=== PATIENT | male | born 1990 ===

== ENCOUNTER 2020-05-04 17:39 | Emergency (ER) | payer OTHER ==
[2020-05-04 18:30] VITALS: BP 120/56
[2020-05-04] MEDS ORDERED: ONDANSETRON 4 MG ODT TAB PO ONE (18:52)
--- NOTE | 2020-05-04 18:58 | Emergency Department Report ---
ED Abdominal Pain HPI - General Chief Complaint: Abdominal Pain Stated Complaint: ABDOMINAL PAIN Time Seen by Provider: 05/04/20 18:52 Source: patient Mode of arrival: Ambulatory Limitations: No Limitations - History of Present Illness Initial Comments: Patient is a 30-year-old male presents emergency room with complaints of nausea and vomiting that began last night. He states he has had multiple episodes of vomiting. He states that he also has some right upper quadrant abdominal pain that began after the vomiting. He states he attributed it to the frequent vomiting. He states that last night he ate chicken nuggets from [employer]. He denies anyone else getting sick. He denies any sick contacts, recent travel, recent antibiotics. Patient denies any diarrhea, fever, urinary symptoms, pain or swelling in the testicles, hematochezia, hematemesis, melena. He denies any past surgical history. No past medical history. No allergies to medications. He endorses occasional tobacco use. He states he rarely drinks alcohol. - Related Data Previous Rx's Medication Instructions Recorded Last Taken Type Famotidine [Pepcid] 40 mg PO QHS #14 tablet 05/04/20 Unknown Rx Ondansetron [Zofran Odt] 4 mg PO Q8HR PRN #10 tab.rapdis 05/04/20 Unknown Rx traMADoL [Ultram 50 MG tab] 50 mg PO Q6HR PRN #10 tablet 05/04/20 Unknown Rx Allergies Allergy/AdvReac Type Severity Reaction Status Date / Time No Known Allergies Allergy Unverified 05/04/20 18:25 ED Review of Systems ROS: Stated complaint: ABDOMINAL PAIN Other details as noted in HPI Comment: All other systems reviewed and negative ED Past Medical Hx - Past Medical History Previous Medical History?: No - Surgical History Past Surgical History?: No - Social History Smoking Status: Current Every Day Smoker Substance Use Type: None - Medications Home Medications: Home Medications Medication Instructions Recorded Confirmed Last Taken Type Famotidine [Pepcid] 40 mg PO QHS #14 tablet 05/04/20 Unknown Rx Ondansetron [Zofran Odt] 4 mg PO Q8HR PRN #10 tab.rapdis 05/04/20 Unknown Rx traMADoL [Ultram 50 MG tab] 50 mg PO Q6HR PRN #10 tablet 05/04/20 Unknown Rx ED Physical Exam - General Limitations: No Limitations General appearance: alert, in no apparent distress - Head Head exam: Present: atraumatic, normocephalic - Eye Eye exam: Present: normal appearance - ENT ENT exam: Present: mucous membranes moist - Respiratory Respiratory exam: Present: normal lung sounds bilaterally. Absent: respiratory distress, wheezes, rales, rhonchi, stridor, chest wall tenderness, accessory muscle use, decreased breath sounds, prolonged expiratory - Cardiovascular Cardiovascular Exam: Present: regular rate, normal rhythm, normal heart sounds. Absent: systolic murmur, diastolic murmur, rubs, gallop - GI/Abdominal GI/Abdominal exam: Present: soft, tenderness (mild RUQ, negative murphys sign, no mcburneys point ttp, negative vidales turners and cullens sign), normal bowel sounds. Absent: distended, guarding, rebound, rigid - Neurological Exam Neurological exam: Present: alert, oriented X3 - Psychiatric Psychiatric exam: Present: normal affect, normal mood - Skin Skin exam: Present: warm, dry, intact ED Course Vital Signs 05/04/20 18:26 Temperature 97.3 F L Pulse Rate 58 L Respiratory 18 Rate Blood Pressure 120/56 O2 Sat by Pulse 97 Oximetry ED Medical Decision Making - Lab Data Result diagrams: 05/04/20 18:59 05/04/20 18:59 Lab Results 05/04/20 05/04/20 Range/Units 18:59 18:59 WBC 8.2 (4.5-11.0) K/mm3 RBC 5.03 (3.65-5.03) M/mm3 Hgb 15.5 H (11.8-15.2) gm/dl Hct 43.9 (35.5-45.6) % MCV 87 (84-94) fl MCH 31 (28-32) pg MCHC 35 H (32-34) % RDW 12.8 L (13.2-15.2) % Plt Count 320 (140-440) K/mm3 Lymph % (Auto) 31.2 (13.4-35.0) % [place] % (Auto) 7.7 H (0.0-7.3) % Eos % (Auto) 2.6 (0.0-4.3) % Baso % (Auto) 1.0 (0.0-1.8) % Lymph # (Auto) 2.7 (1.2-5.4) K/mm3 [place] # (Auto) 0.7 (0.0-0.8) K/mm3 Eos # (Auto) 0.2 (0.0-0.4) K/mm3 Baso # (Auto) 0.1 (0.0-0.1) K/mm3 Seg Neutrophils % 57.5 (40.0-70.0) % Seg Neutrophils # 5.0 (1.8-7.7) K/mm3 Sodium 138 (137-145) mmol/L Potassium 3.4 L (3.6-5.0) mmol/L Chloride 99.4 (98-107) mmol/L Carbon Dioxide 30 (22-30) mmol/L Anion Gap 12 mmol/L BUN 5 L (9-20) mg/dL Creatinine 0.8 (0.8-1.3) mg/dL Estimated GFR > 60 ml/min BUN/Creatinine Ratio 6 % Glucose 93 (75-100) mg/dL Calcium 9.8 (8.4-10.2) mg/dL Total Bilirubin 0.70 (0.1-1.2) mg/dL AST 18 (5-40) units/L ALT 12 (7-56) units/L Alkaline Phosphatase 68 (35-129) units/L Total Protein 7.9 (6.3-8.2) g/dL Albumin 5.0 (3.9-5) g/dL Albumin/Globulin Ratio 1.7 % Lipase 18 (13-60) units/L - Radiology Data Radiology results: report reviewed Ordering Physician: GERALD MARIA Date of Service: 05/04/20 Procedure(s): US abdomen limited Accession Number(s): [id number] cc: GERALD MARIA ULTRASOUND ABDOMEN, LIMITED (RIGHT UPPER QUADRANT) INDICATION: Right upper quadrant pain with nausea and vomiting.. COMPARISON: None available. FINDINGS: PANCREAS: No significant abnormality. LIVER: No significant abnormality. GALLBLADDER: 1.2 cm echogenic focus in the gallbladder neck demonstrates post erior shadowing. The gallbladder is normal in size without wall thickening. BILE DUCTS: No significant abnormality. Common bile duct measures 2.2 mm. FREE FLUID: None. ADDITIONAL FINDINGS: Images of the right kidney are normal. IMPRESSION: Moderate sized stone in the gallbladder neck without sonographic evidence of acute cholecystitis. Signer Name: Mayo Olivarez MD Signed: 05/04/2020 8:34 PM Workstation Name: [id number] Transcribed By: RT Dictated By: Mayo Olivarez MD Electronically Authenticated By: Mayo Olivarez MD Signed Date/Time: 05/04/202033 DD/ 31 TD/TT: - Medical Decision Making Patient is a 30-year-old male presents emergency room with complaints of nausea and vomiting that began last night. He states he has had multiple episodes of vomiting. He states that he also has some right upper quadrant abdominal pain that began after the vomiting. He states he attributed it to the frequent vomiting. He states that last night he ate chicken nuggets from [employer]. He denies anyone else getting sick. He denies any sick contacts, recent travel, recent antibiotics. Patient denies any diarrhea, fever, urinary symptoms, pain or swelling in the testicles, hematochezia, hematemesis, melena. He denies any past surgical history. No past medical history. No allergies to medications. He endorses occasional tobacco use. He states he rarely drinks alcohol. Vitals are normal. On exam patient has mild right upper quadrant tenderness to palpation, negative Storm sign. Labs are stable. Discussed increasing oral potassium intake. Abdominal ultrasound: IMPRESSION: Moderate sized stone in the gallbladder neck without sonographic evidence of acute cholecystitis. Patient given ODT Zofran while in the emergency department and symptoms improved and he was feeling much better ready to go home, patient was able to tolerate p.o. intake. Discussed all results with patient and the importance of follow-up. Patient given prescription for Zofran, Pepcid, tramadol. Advised patient Please take medication as prescribed as needed. Do not drive or operate machinery while taking severe pain medication. Increase your water intake. Avoid anything fatty or greasy. Follow-up with a primary care doctor. Follow-up with a general surgeon. Return to emergency room immediately for any new or worsening symptoms including but not limited to worsening abdominal pain, fever, constant vomiting, unable to tolerate by mouth intake, etc. Critical care attestation.: If time is entered above; I have spent that time in minutes in the direct care of this critically ill patient, excluding procedure time. ED Disposition Clinical Impression: Abdominal pain Qualifiers: Abdominal location: right upper quadrant Qualified Code(s): R10.11 - Right upper quadrant pain Nausea & vomiting Qualifiers: Vomiting type: unspecified Vomiting Intractability: non-intractable Qualified C ode(s): R11.2 - Nausea with vomiting, unspecified Cholelithiasis Qualifiers: Cholelithiasis location: gallbladder Cholecystitis presence: without cholecystitis Biliary obstruction: without biliary obstruction Qualified Code(s): K80.20 - Calculus of gallbladder without cholecystitis without obstruction Disposition: TO HOME OR SELFCARE Is pt being admited?: No Does the pt Need Aspirin: No Condition: Stable Instructions: Cholelithiasis, [id number], Abdominal Pain, Adult, [id number], Nausea and Vomiting, Adult, Gallbladder Eating Plan Additional Instructions: Please take medication as prescribed as needed. Do not drive or operate machinery while taking severe pain medication. Increase your water intake. Avoid anything fatty or greasy. Follow-up with a primary care doctor. Follow- up with a general surgeon. Return to emergency room immediately for any new or worsening symptoms including but not limited to worsening abdominal pain, fever, constant vomiting, unable to tolerate by mouth intake, etc. Prescriptions: Famotidine [Pepcid] 40 mg PO QHS #14 tablet traMADoL [Ultram 50 MG tab] 50 mg PO Q6HR PRN #10 tablet PRN Reason: Pain , Severe (7-10) Ondansetron [Zofran Odt] 4 mg PO Q8HR PRN #10 tab.rapdis PRN Reason: nausea vomiting Referrals: PRIMARY CARE, [Primary Care Provider] - 2-3 Days KORY VILLEGAS MD [Staff Physician] - 2-3 Days Time of Disposition: 20:41 Print Language: FINNISH
[2020-05-04 19:11] LABS: Hematocrit 43.9 % (35.5-45.6); Hemoglobin 15.5 gm/dl (11.8-15.2); Mean Corpuscular HGB Conc 35 % (32-34); Mean Corpuscular Volume 87 fl (84-94); Platelet Count 320 K/mm3 (140-440); Red Blood Count 5.03 M/mm3 (3.65-5.03); Red Cell Distribution Width 12.8 % (13.2-15.2)
[2020-05-04 19:31] LABS: Basophils # (Auto) 0.1 K/mm3 (0.0-0.1); Eosinophils # (Auto) 0.2 K/mm3 (0.0-0.4); Eosinophils % (Auto) 2.6 % (0.0-4.3); Lymphocytes # (Auto) 2.7 K/mm3 (1.2-5.4); Lymphocytes % (Auto) 31.2 % (13.4-35.0); Monocytes # (Auto) 0.7 K/mm3 (0.0-0.8); Monocytes % (Auto) 7.7 % (0.0-7.3)
[2020-05-04 19:45] LABS: Alanine Aminotransferase 12 units/L (7-56); BUN/Creatinine Ratio 6; Blood Urea Nitrogen 5 mg/dL (9-20); Calcium 9.8 mg/dL (8.4-10.2); Hemolysis Index 6
--- NOTE | 2020-05-04 20:38 | Ultrasound Report ---
ULTRASOUND ABDOMEN, LIMITED (RIGHT UPPER QUADRANT) INDICATION: Right upper quadrant pain with nausea and vomiting.. COMPARISON: None available. FINDINGS: PANCREAS: No significant abnormality. LIVER: No significant abnormality. GALLBLADDER: 1.2 cm echogenic focus in the gallbladder neck demonstrates posterior shadowing. The gal lbladder is normal in size without wall thickening. BILE DUCTS: No significant abnormality. Common bile duct measures 2.2 mm. FREE FLUID: None. ADDITIONAL FINDINGS: Images of the right kidney are normal. IMPRESSION: Moderate sized stone in the gallbladder neck without sonographic evidence of acute cholec ystitis. Signer Name: Mayo Olivarez MD Signed: 05/04/2020 8:34 PM Workstation Name: [id number]
== END 2020-05-04 21:12 | disposition home or self-care (01) ==
LOC: ED 17:39
DX: K80.20 Calculus of gallbladder without cholecystitis without obstruction (principal); R11.2 Nausea with vomiting, unspecified; R10.11 Right upper quadrant pain; F17.200 Nicotine dependence, unspecified, uncomplicated; Z79.899 Other long term (current) drug therapy
CPT/HCPCS: 36415; 76705; 80053; 83690; 85025; Q0162